=== PATIENT | female | born 1935 | race Caucasian/White ===

== ENCOUNTER → 2017-09-10 | Outpatient (CLI) | payer MEDICARE ==
[~2017-09-10] MED LIST: ATORVASTATIN CA20 MG PO; METOPROLOL SUCC25 MG PO; METOPROLOL TART50 MG PO; MYCARDIS PO; PLAQUENIL200 MG PO; PRADAXA150 MG PO; PRAVASTATIN SOD10 MG; [UNRECOGNIZED DRUG - REMARK]
--- NOTE | 2017-09-10 16:43 | Diagnostic Imaging Report ---
Exam: Brain MRI without IV contrast History: TIA. Comparison studies: Brain MRI 08/02/[address] 08/01/2016 Technique: Sagittal and axial T2 FS, axial DWI, axial T2*GRE, axial T1 FLAIR and axial coronal T2 FLAIR. Intravenous contrast: None Findings: Scalp: Normal in signal. No masses. Bone marrow: Normal in signal intensity. Brain sulci: And sylvian fissures are mildly prominent. Remaining sulci are within normal limits for patient's age. Ventricles: Mildly dilated lateral and third ventricles the ventricles, somewhat disproportionate to sulcal prominence which may be related to degree of central rim of peripheral cortical volume loss. Consider normal pressure hydrocephalus (NPH) only in the appropriate clinical setting. No acute hydrocephalus. Extra axial spaces: No mass, no fluid collection. Parenchyma: Mass, hemorrhage or acute ischemia. Scattered T2 FLAIR hyperintense foci in the supratentorial white matter are nonspecific but most compatible with chronic microvascular ischemic changes. Unchanged chronic microhemorrhage or punctate dystrophic calcification in the right paramedian parietal lobe without surrounding edema or mass effect. Suprasellar region: No abnormalities. Craniocervical junction: Patent foramen magnum. No Chiari malformation. Vessels: Normal flow-voids in the arteries and sinuses. Incidental findings: Bilateral intraocular lens replacements. IMPRESSION: 1. No acute ischemia or other acute abnormalities. 2. No changes from the previous brain MRI of 08/02/2016. 3. Mild generalized volume loss. 4. Moderate chronic microvascular ischemic changes. 5. Nonspecific ventriculomegaly may be due to volume loss. Consider NPH in the appropriate clinical setting. No acute hydrocephalus. Signed by: Dr. Don Palomo M.D. on 09/10/2017 4:40 PM
== END ==
LOC: MRI 14:18
PROVIDERS: ATTEND Internal Medicine
DX: Z86.73 Personal history of transient ischemic attack (TIA), and cerebral infarction without residual deficits (principal)
CPT/HCPCS: 70551

== ENCOUNTER → 2019-12-31 | Outpatient (CLI) | payer MEDICARE ==
[~2019-12-31] MED LIST changes: +IOPAMIDOL 370 MG/ML 200 ML INFUS..BTL INJ ONE; +METOPROLOL TARTRATE INJ 1 MG/ML VIAL ONE; +NITROGLYCERIN 0.4 MG SUBL ONE; +SODIUM CHLORIDE 0.9% 100 ML ONE
[2019-12-31 08:07] LABS: BLOOD UREA NITROGEN 18 mg/dL (7-26); BUN/CREATININE RATIO 22 (6-25); CREATININE, SERUM 0.83 mg/dL (0.57-1.11); EST GLOMERULAR FILTRATION RATE > 60 ML/MIN (60-)
== END ==
LOC: CT 07:15
PROVIDERS: ATTEND Internal Medicine
DX: R07.9 Chest pain, unspecified (principal)
CPT/HCPCS: 36415; 75574; 82565; 84520; J7050; Q9967

== ENCOUNTER 2021-10-08 16:01 | Emergency (ER) | payer MEDICARE ==
[~2021-10-08] VITALS: Ht 160 cm; Wt 56.2 kg
[~2021-10-08 16:01] MED LIST changes: -IOPAMIDOL 370 MG/ML 200 ML INFUS..BTL INJ ONE; -METOPROLOL TARTRATE INJ 1 MG/ML VIAL ONE; -NITROGLYCERIN 0.4 MG SUBL ONE; -SODIUM CHLORIDE 0.9% 100 ML ONE
[2021-10-08] MEDS ORDERED: ACETAMINOPHEN 325 MG TAB PO ONE (19:00)
[2021-10-08] MEDS ORDERED: ACETAMINOPHEN 325 MG TAB ONE (19:08)
== END 2021-10-08 19:51 | disposition home or self-care (01) ==
LOC: ER 17:04
DX: R05.9 Cough, unspecified (principal); U07.1 COVID-19; R53.83 Other fatigue; R53.1 Weakness; I48.91 Unspecified atrial fibrillation; E78.00 Pure hypercholesterolemia, unspecified; M50.30 Other cervical disc degeneration, unspecified cervical region
CPT/HCPCS: 93005; 99283